=== PATIENT | female | born 1990 | race Caucasian/White ===

== ENCOUNTER 2022-05-14 17:48 | Emergency (ER) | payer BC ==
[~2022-05-14] VITALS: Ht 165.1 cm; Wt 51.3 kg
[2022-05-14] MEDS ORDERED: NURTEC ODT75 MG PO (18:11)
[2022-05-14] MEDS ORDERED: QULIPTA60 MG PO (18:12)
== END 2022-05-14 20:01 | disposition home or self-care (01) ==
LOC: ER 17:48
DX: G43.409 Hemiplegic migraine, not intractable, without status migrainosus (principal); F17.210 Nicotine dependence, cigarettes, uncomplicated; Z88.0 Allergy status to penicillin; Z88.2 Allergy status to sulfonamides; Z79.899 Other long term (current) drug therapy
CPT/HCPCS: J1200; J1885; J2765; J7030